=== PATIENT | female | born 1975 | race Caucasian/White ===

== ENCOUNTER 2018-12-05 11:12 | Emergency (ER) | payer MEDICAID ==
[~2018-12-05] VITALS: Ht 165.1 cm; Wt 70.0 kg
[2018-12-05 11:17] VITALS: Ht 165.1 cm; Wt 70.0 kg
[2018-12-05] MEDS ORDERED: morphine 4 MG/ML VIAL IV STA (12:00)
[2018-12-05] MEDS ORDERED: ONDANSETRON 4 MG INJ IV STA (12:00)
[2018-12-05] MEDS ORDERED: SOD CHLORIDE 0.9% 1,000 ML IV STA (12:00)
[2018-12-05] MEDS ORDERED: KETOROLAC 15 MG INJ IV STA (12:00)
[2018-12-05] MEDS ORDERED: CEFTRIAXONE 1 GM/50 ML (PMX) 50 ML IVPB ONE (13:00)
--- NOTE | 2018-12-05 13:13 | ERD ---
ER Documentation Chief Complaint Chief Complaint Pt with lower abdominal pain/nausea and fever x 1 week. HPI This is a pleasant 43-year-old female, with no significant medical history presents for right flank pain rating to the right lower abdomen for the last week intermittently. Yesterday she had a fever, and today her pain intensified, and this was the reason for presentation. She denies any chest pain or shortness of breath, she has not had any prior GI surgeries. She endorses nausea, but no vomiting. Her symptoms are constant. She has had not had any vaginal discharge. ROS All systems reviewed and are negative except as per history of present illness. Medications Home Meds No Active Prescriptions or Reported Meds Allergies Allergies: Coded Allergies: No Known Allergy (Unverified , 12/05/18) PMhx/Soc History of Surgery: Yes (C SECTION ) Anesthesia Reaction: No Hx Neurological Disorder: No Hx Respiratory Disorders: No Hx Cardiac Disorders: No Hx Psychiatric Problems: No Hx Miscellaneous Medical Probl: Yes (HIV ) Hx Alcohol Use: No Hx Substance Use: No Hx Tobacco Use: No Smoking Status: Never smoker Physical Exam Vitals Vital Signs Date Temp Pulse Resp B/P (MAP) Pulse Ox O2 O2 Flow FiO2 Time Delivery Rate 12/05/18 78 18 117/76 99 Room Air 12:36 (90) 12/05/18 99.4 100 14 134/72 97 11:17 (92) Physical Exam Const: No acute distress Head: Atraumatic Eyes: Normal Conjunctiva ENT: Normal External Ears, Nose and Mouth. Neck: Full range of motion. No meningismus. Resp: Clear to auscultation bilaterally Cardio: Regular rate and rhythm, no murmurs Abd: Soft, non tender, non distended, there is no McBurney's point tenderness, there is right flank tenderness, no rebound or guarding. Normal bowel sounds Skin: No petechiae or rashes Back: No midline or flank tenderness Ext: No cyanosis, or edema Neur: Awake and alert Psych: Normal Mood and Affect Result Diagram: 12/05/18 1150 12/05/18 1150 Results 24 hrs Laboratory Tests Test 12/05/18 11:50 12/05/18 11:55 White Blood Count 10.7 10^3/ul Red Blood Count 4.47 10^6/ul Hemoglobin 13.6 g/dl Hematocrit 40.6 % Mean Corpuscular Volume 90.8 fl Mean Corpuscular Hemoglobin 30.4 pg Mean Corpuscular Hemoglobin Concent 33.5 g/dl Red Cell Distribution Width 12.4 % Platelet Count 199 10^3/UL Mean Platelet Volume 10.1 fl Immature Granulocytes % 0.500 % Neutrophils % 79.6 % Lymphocytes % 13.8 % Monocytes % 5.6 % Eosinophils % 0.2 % Basophils % 0.3 % Nucleated Red Blood Cells % 0.0 /100WBC Immature Granulocytes # 0.050 10^3/ul Neutrophils # 8.5 10^3/ul Lymphocytes # 1.5 10^3/ul Monocytes # 0.6 10^3/ul Eosinophils # 0.0 10^3/ul Basophils # 0.0 10^3/ul Nucleated Red Blood Cells # 0.0 10^3/ul Urine Color RED Urine Clarity CLOUDY Urine pH 7.0 Urine Specific [place] 1.011 Urine Ketones NEGATIVE mg/dL Urine Nitrite NEGATIVE mg/dL Urine Bilirubin NEGATIVE mg/dL Urine Urobilinogen NEGATIVE mg/dL Urine Leukocyte Esterase 3+ [place]/ul Urine Microscopic RBC 11 /HPF Urine Microscopic WBC 168 /HPF Urine Squamous Epithelial Cells MODERATE /HPF Urine Bacteria FEW /HPF Urine Hemoglobin 1+ mg/dL Urine Glucose NEGATIVE mg/dL Urine Total Protein NEGATIVE mg/dl Sodium Level 142 mmol/L Potassium Level 3.6 mmol/L Chloride Level 104 mmol/L Carbon Dioxide Level 28 mmol/L Anion Gap 10 Blood Urea Nitrogen 8 mg/dl Creatinine 0.57 mg/dl Est Glomerular Filtrat Rate mL/min > 60 mL/min Glucose Level 117 mg/dl Calcium Level 9.6 mg/dl Total Bilirubin 0.6 mg/dl Direct Bilirubin 0.00 mg/dl Indirect Bilirubin 0.6 mg/dl Aspartate Amino Transf (AST/SGOT) 32 IU/L Alanine Aminotransferase (ALT/SGPT) 41 IU/L Alkaline Phosphatase 80 IU/L Total Protein 8.3 g/dl Albumin 4.8 g/dl Globulin 3.50 g/dl Albumin/Globulin Ratio 1.37 Lipase 80 U/L POC Beta HCG, Qualitative NEGATIVE Current Medications Medications Dose Sig/Jil Start Time Status Last (Trade) Ordered Route PRN Stop Time Admin Dose Reason Admin Sodium 1,000 ml @ Q1H STAT 12/05/18 DC 12/05/18 Chloride 1,000 mls/hr IV 12:00 12:05 12/05/18 12:59 Morphine 4 mg ONCE STAT 12/05/18 DC 12/05/18 Sulfate IV 12:00 12:05 (morphine) 12/05/18 12:01 Ondansetron 4 mg ONCE STAT 12/05/18 DC 12/05/18 HCl (Zofran IV 12:00 12:05 Inj) 12/05/18 12:01 Ketorolac 15 mg ONCE STAT 12/05/18 DC 12/05/18 Tromethamine IV 12:00 12:05 (Toradol) 12/05/18 12:01 Ceftriaxone 50 ml @ ONCE ONCE 12/05/18 Sodium 100 mls/hr IVPB 13:00 12/05/18 13:29 [place] [address] Radiology Main Line: [phone] DIAGNOSTIC IMAGING REPORT Patient: BASIA PAULSON : 1975 Age: 43 Sex: F MR #: [id number] DOS: 12/05/18 1200 Ordering MD: PRIYANK CABALLERO MD Location: E/R Room/Bed: PROCEDURE: CT Abdomen and pelvis without contrast. CLINICAL INDICATION: Pain TECHNIQUE: CT scan of the abdomen and pelvis without contrast was performed on a multidetector high-resolution CT scan. . Coronal and sagittal reformatted images were obtained from the axial source images. Standard CT scan of the abdomen pelvis without contrast protocols were performed. The total exam CTDI equals 10.45 mGy and the total exam DLP equals 623.63 mGy- cm. One or more of the following dose reduction techniques were used: - Automated exposure control. - Adjustment of the mA and/or kV according to patient size. Use of iterative reconstruction technique. Dicom images are available COMPARISON: None. FINDINGS: The kidneys are normal in size without calcified cat ilii or intra renal masses bilaterally. There is moderate right hydronephrosis and hydroureter extending to the level the urinary bladder without obstructing lesion demonstrated. Findings may in fact represent recently passed calculus. Recommend clinical correlation. No evidence of left obstructive uropathy. Partially contracted urinary bladder with moderate circumferential wall thickening may all relate to lack of optimal distension however cystitis should be considered. Anteverted anteflexed otherwise unremarkable uterus. No adnexal masses. No evidence of intra-abdominal free air, free fluid, abscesses or lymphadenopathy. Small appendicolith. Appendix otherwise unremarkable. Stomach, small bowel and large bowel unremarkable. Hepatomegaly with hepatic fatty infiltration. No focal hepatic lesions. Spleen pancreas adrenal glands and gallbladder unremarkable. No biliary ductal dilation. Lung bases unremarkable. Aorta unremarkable. Abdominal pelvic wall unremarkable. Minimal dextrorotoscoliosis lower thoracic and lumbar spine. Minimal degenerative changes lower thoracic and lumbar spine without acute osseous findings are osteoblastic/osteolytic lesions. IMPRESSION: 1. Moderate right hydronephrosis and hydroureter without obstructing lesion demonstrated. Finding may represent recently passed calculus. Note however a very calcified calculi demonstrated. No left obstructive uropathy. 2. Moderate circumferential wall thickening of the urinary bladder may all relate to lack of optimal distension. Cystitis cannot be excluded. 3. No evidence of gastrointestinal disease. 4. Hepatomegaly with hepatic fatty infiltration. RPTAT:AAJJ Physician Jerri Date Time Electronically viewed and signed by Physician Jerri on 12/05/2018 12:50 BM/ CC: PRIYANK CABALLERO MD [id number] Procedures/MDM Is a pleasant 43-year-old female presents for evaluation of right flank pain radiating into the right groin. Her history and physical are most consistent with likely pyelonephritis, her urinalysis showed significant bacteriuria. CT scan showed signs of possibly recently passed kidney stone. Additional consideration was atypical angina, however the patient's cardiac work-up was negative, she received IV ceftriaxone, and analgesia and felt significantly better, she was discharged with Keflex, at discharge the patient was in no acute distress, and repeat abdominal exam showed no peritoneal signs. Strict return precautions were given to return for uncontrolled fever, worsening pain or any other concerns. EKG: Rate/Rhythm: Normal Sinus Rhythm QRS, ST, T-waves: No changes consistent w/ acute ischemia Impression: No evidence of ischemia or arrhythmia Departure Diagnosis: Primary Impression: Abdominal pain Abdominal location: unspecified location Qualified Codes: R10.9 - U nspecified abdominal pain Additional Impression: Pyelonephritis Condition: Stable PRIYANK CABALLERO MD Dec 05, 2018 13:13
[2018-12-05] MEDS ORDERED: IBUP-1542 PO (13:15)
[2018-12-05] MEDS ORDERED: PHEN-537 PO (13:15)
[2018-12-05] MEDS ORDERED: CEPH-443 PO (13:15)
[2018-12-05 13:45] VITALS: BP 113/72; PULSE 82; RESP 18
== END 2018-12-05 13:46 | disposition home or self-care (01) ==
LOC: E/R 11:12
DX: N12 Tubulo-interstitial nephritis, not specified as acute or chronic (principal); Z21 Asymptomatic human immunodeficiency virus [HIV] infection status
CPT/HCPCS: 74176; 80053; 81001; 81025; 83690; 85025; 87086; 93005; 96361; 96374; 96375; J0696; J1885; J2270; J2405; J7030; Z7502

== ENCOUNTER 2019-03-21 11:43 | Emergency (ER) | payer MEDICAID ==
[~2019-03-21] VITALS: Ht 160 cm; Wt 69.8 kg
[~2019-03-21 11:43] MED LIST: CEPH-443 PO; HYDR-4011 PO; IBUP-1542 PO; PHEN-537 PO
[2019-03-21 11:45] VITALS: Ht 160 cm; Wt 69.8 kg
[2019-03-21] MEDS ORDERED: SOD CHLORIDE 0.9% 1,000 ML IV STA (12:02)
[2019-03-21] MEDS ORDERED: ONDANSETRON 4 MG INJ IV STA (12:02)
[2019-03-21] MEDS ORDERED: HYDROmorphONE 1 MG/ML SYG IV STA (12:02)
[2019-03-21] MEDS: KETOROLAC 30 MG INJ IV STA ×2 (12:26→12:36)
[2019-03-21 14:10] VITALS: BP 142/68; PULSE 74; RESP 18
== END 2019-03-21 14:15 | disposition home or self-care (01) ==
LOC: FTE 11:43
DX: M54.5 Low back pain (principal); Z21 Asymptomatic human immunodeficiency virus [HIV] infection status
CPT/HCPCS: 72128; 72131; 74176; 80053; 81001; 81025; 83690; 84484; 85025; J1170; J1885; J2405; J7030; 36415; 81003; 96374; 96375